=== PATIENT | female | born 1995 | race Caucasian/White ===

== ENCOUNTER → 2017-04-03 | Outpatient (CLI) | payer OTHER ==
--- NOTE | 2017-04-03 14:05 | Diagnostic Imaging Report ---
INDICATION: survey. TECHNIQUE: Multiple real-time grayscale images were obtained over the gravid uterus. COMPARISON: None FINDINGS: There is a live single intrauterine . heart rate is 146 beats per minute. The placenta is anterior. The placenta appeared to be extending to the lower uterine segment near the internal os however after voiding, there is more than 2 cm distance between the placenta and internal os indicating no placenta previa. The cervix is 5.4 cm in length and is closed. No ventriculomegaly. The stomach, the kidneys, three-vessel cord appear unremarkable. The urinary bladder, the four-chamber view and the spine are not well evaluated due to position and lack of distention of the bladder. The cord insertion is inseparable from adjacent leg with no definite abnormality. The growth parameters are: Biparietal diameter: 18 weeks and 3 days, at 20 percentile Head circumference: 18 weeks and one day, at 5 percentile Abdominal circumference: 18 weeks and 5 days, at 30 percentile Femur length: 18 weeks and 4 days, at 20 percentile These average at: 18 weeks and 4 days. This compares to 19 weeks and one day gestational age based on provided ROSALVA of 08/27/2017. IMPRESSION: Incomplete survey. Reevaluation within three weeks for the spine, urinary bladder, and four-chamber view is recommended. Better assessment of the cord insertion could also be attempted. Dictated by: Dictated on workstation # [id number]
== END ==
LOC: RAD 09:52
PROVIDERS: ATTEND Obstetrics & Gynecology
DX: Z36 Encounter for antenatal screening of mother (principal); Z3A.18 18 weeks gestation of pregnancy
CPT/HCPCS: 76805; 76817

== ENCOUNTER → 2017-07-04 | Outpatient (CLI) | payer MEDICAID, OTHER ==
[~2017-07-04] MED LIST: DOCU100C37 PO; FERR-74 PO; HYDR-3874 PO; IBUP-1773 PO
--- NOTE | 2017-07-04 16:13 | Diagnostic Imaging Report ---
INDICATION: Further evaluate anatomy not seen on prior examination. TECHNIQUE: Multiple real-time grayscale images were obtained over the gravid uterus. COMPARISON: 04/03/2017. FINDINGS: A limited anatomy survey was performed to assess the anatomy that was not seen on prior examination. A single live gestation is again seen in cephalic presentation with a heart rate of 143 beats per minute. Allowing for advanced gestational age, the spine, urinary bladder, and four-chamber heart are normal. The umbilical cord insertion on the abdominal wall is not well visualized on this examination. The BRYCE is normal at 10.5 cm with the largest pocket measuring 3.8 cm. Due to limited nature of this examination, the biometric data such as average ultrasound age was not performed. IMPRESSION: The four-chamber heart, spine, and urinary bladder are all normal. Again the umbilical cord insertion on the abdominal wall of the fetus was poorly evaluated due to advanced gestational age. Dictated by: Dictated on workstation # [id number]
== END ==
LOC: RAD 09:57
PROVIDERS: ATTEND Obstetrics & Gynecology
DX: Z36 Encounter for antenatal screening of mother (principal); Z3A.00 Weeks of gestation of pregnancy not specified
CPT/HCPCS: 76816

== ENCOUNTER 2019-02-26 16:30 | Emergency (ER) | payer MEDICAID, OTHER ==
[~2019-02-26 16:30] MED LIST changes: -FERR-74 PO; +FERR325T18 PO; +HYDR-3870 PO; -HYDR-3874 PO
--- OUTSIDE RECORDS SUMMARY | 2019-02-26 16:35 | XMS REPORT | Continuity of Care Document ---
Author Organization Unknown Address Unknown Allergies There is no data. Medications There is no data. Problems There is no data. Procedures There is no data. Results There is no data. Encounters ACCT No. Visit Date/Time Discharge Status Pt. Type Provider Facility Loc./Unit Complaint [id number] 02/11/2019 09:30:00 02/11/2019 23:59:59 CLS Outpatient DAVID LALA DO [facility]
[2019-02-26 16:50] VITALS: BP 0/0
== END 2019-02-26 16:50 | disposition left against medical advice (07) ==
LOC: EDUNIT# 16:30 → ER FS 16:32
DX: T78.40XA Allergy, unspecified, initial encounter (principal)
CPT/HCPCS: 99281

== ENCOUNTER 2022-02-11 10:30 | Emergency (ER) | payer OTHER ==
[~2022-02-11] VITALS: Ht 157.5 cm; Wt 49.9 kg
[2022-02-11 10:55] LABS: CLARITY,URINE CLEAR; COLOR,URINE YELLOW; GLUCOSE, URINE (UA) NEGATIVE (NEGATIVE); KETONES,URINE 3+ (NEGATIVE); LEUKOCYTE ESTERASE ,URINE 1+ (NEGATIVE); NITRITE,URINE NEGATIVE (NEGATIVE); PROTEIN,URINE 2+ (NEGATIVE)
[2022-02-11 10:57] LABS: BACTERIA,URINE MODERATE /HPF; BILIRUBIN,URINE 1+ (NEGATIVE)
[2022-02-11 10:58] LABS: BASOPHILS # (AUTO) 0.1 10^3/uL (0.0-0.1); BASOPHILS % (AUTO) 0 % (0-10); EOSINOPHILS % (AUTO) 0 % (0-10); HEMATOCRIT 42 % (35-52); HEMOGLOBIN 15.1 g/dL (11.5-16.0); LYMPHOCYTES # (AUTO) 0.6 10^3/uL (1.0-4.0); LYMPHOCYTES % (AUTO) 2 % (12-44); MEAN CORPUSCULAR HEMOGLOBIN 30 pg (25-34); MEAN CORPUSCULAR HGB CONC 36 g/dL (32-36); MEAN CORPUSCULAR VOLUME 83 fL (80-99); MEAN PLATELET VOLUME 11.3 fL (9.0-12.2); MONOCYTES # (AUTO) 1.1 10^3/uL (0.0-1.0); MONOCYTES % (AUTO) 3 % (0-12); NEUTROPHILS # (AUTO) 29.1 10^3/uL (1.8-7.8); NEUTROPHILS % (AUTO) 94 % (42-75); PLATELET COUNT 250 10^3/uL (130-400)
[2022-02-11 11:00] LABS: WHITE BLOOD COUNT 30.9 10^3/uL (4.3-11.0)
[2022-02-11] MEDS ORDERED: ONDANSETRON 4 MG/2 ML (SDV) Z0FRAN IVP STA (11:03)
[2022-02-11] MEDS ORDERED: NS IV 1000 ML 1,000 ML IV STA ×2 (11:03→12:04)
[2022-02-11 11:13] LABS: ALANINE AMINOTRANSFERASE 11 U/L (0-55); ALBUMIN 5.4 GM/DL (3.2-4.5); ALKALINE PHOSPHATASE 58 U/L (40-136); BILIRUBIN,TOTAL 0.6 MG/DL (0.1-1.0); BUN/CREATININE RATIO 28; CALCIUM 10.5 MG/DL (8.5-10.1); CARBON DIOXIDE 23 MMOL/L (21-32); CHLORIDE 104 MMOL/L (98-107); CREATININE SERUM 0.64 MG/DL (0.60-1.30); GFR ESTIMATED 125; GLUCOSE 145 MG/DL (70-105); LIPASE 30 U/L (8-78); SODIUM 140 MMOL/L (135-145); TOTAL PROTEIN 8.5 GM/DL (6.4-8.2)
[2022-02-11] MEDS ORDERED: KETOROLAC 30 MG/ML VIAL IVP STA (11:34)
[2022-02-11] MEDS ORDERED: fentaNYL INJ 100 MCG/2 ML AMP IVP STA (11:34)
[2022-02-11] MEDS ORDERED: PANTOPRAZOLE 40 MG (PROTONIX) VIAL IV STA (11:34)
[2022-02-11] MEDS ORDERED: cefTRIAXone 1 GM PRE-MIX 50 ML IV STA (11:35)
[2022-02-11 11:43] LABS: LYMPHOCYTES % (MANUAL) 1 %; MONOCYTES % (MANUAL) 1 %; NEUTROPHILS % (MANUAL) 98 %
[2022-02-11] MEDS ORDERED: HOLD METFORMIN - RECEIVED CONTRAST 20 ML VIAL IV SCH (11:45)
[2022-02-11] MEDS ORDERED: IOHEXOL 350 MG/ML 100 ML (OMNIPAQUE 350) VIAL IV ONE (11:45)
[2022-02-11] MEDS ORDERED: NS 100 ML (IVPB) BAG IV ONE (11:45)
[2022-02-11] MEDS ORDERED: CATHETER FLUSH 10 ML SYR IV PRN (11:45)
--- NOTE | 2022-02-11 12:19 | Diagnostic Imaging Report ---
PROCEDURE: CT abdomen and pelvis with contrast, rule out appendicitis. TECHNIQUE: Multiple contiguous axial images were obtained through the abdomen and pelvis after the administration of intravenous contrast. All CT scans use one or more of the following dose optimizing techniques: automated exposure control, MA and/or KvP adjustment based on patient size and exam type or iterative reconstruction. INDICATION: Nausea, vomiting and diarrhea with elevated white blood cell count and left lower quadrant abdominal pain. No prior studies are available for comparison. The lung bases are clear. The liver and gallbladder are unremarkable. There is no biliary ductal dilatation. The pancreas and spleen are unremarkable. No adrenal mass is detected. Kidneys are unremarkable. No hydronephrosis is seen. Aorta is nonaneurysmal. Bowel loops are of normal caliber. There are some fluid-filled small bowel loops in the lower abdomen and pelvis without evidence of transition. This could be owing to nonspecific enteritis. No inflammatory changes are seen. The appendix is not definitely visualized however no inflammatory changes in the right lower quadrant are detected. There is no free fluid or fluid collection detected. Uterus contains an IUD. The bladder is unremarkable. IMPRESSION: Nonspecific fluid-filled small bowel loops in the lower abdomen and pelvis without evidence of a transition zone. This could be owing to nonspecific enteritis. No definite inflammatory changes are seen. Dictated by: Dictated on workstation # [id number]
--- NOTE | 2022-02-11 12:27 | ED GI ---
General Chief Complaint: Abdominal/GI Problems Stated Complaint: VOMITING AND DIARRHEA Nursing Triage Note: PT AMBULATE TO ROOM FSOF WITH C/O N/V/D SINCE 023 TODAY. Source of Information: Patient History of Present Illness Date Seen by Provider: Feb 11, 2022 Time Seen by Provider: 10:37 Initial Comments 26-year-old female presenting with complaints of nausea, vomiting, diarrhea and diffuse abdominal pain since 230 this morning. She denies eating anything di fferent or abnormal. She has not had a fever or chills. She does have decreased urine output and has not been able to tolerate oral today. She denies having any abdominal surgeries in the past. She has recently started on a medication for possible lupus. She denies any abdominal trauma. She has not seen any blood in her urine or stool or vomit. Timing/Duration: Other (Since 2:30 AM) Severity/Quality: Severe Location: Generalized Abdomen Activities at Onset: Sleeping Modifying Factors: Worsens With Eating Associated Symptoms: No Back Pain, No Chest Pain, No Diaphoresis, No Fever/Chills, No Fatigue, No Headache, No Heartburn; Nausea/Vomiting; No Rash, No Shortness of Air, No Swelling/Mass in Abdomen, No Syncope, No Weakness Allergies and Home Medications Allergies Coded Allergies: Sulfa (Sulfonamide Antibiotics) (Verified Allergy, Severe, ANAPHYLAXIS, 08/18/17) Causes throat to swell. Patient Home Medication List Home Medication List Reviewed: Yes Cephalexin (Cephalexin) 500 Mg Capsule, 500 MG PO TID Prescribed by: SHERRY HURTADO on 02/11/22 1313 Docusate Sodium (Docusate Sodium) 100 Mg Capsule, 100 MG PO BID Prescribed by: TAMMIE MONTES on 08/20/17727 Ferrous Sulfate (Ferrous Sulfate) 325 Mg Tablet, 325 MG PO DAILY Prescribed by: TAMMIE MONTES on 08/20/17727 Hydrocodone/Acetaminophen (Lorcet 5-325 mg Tablet) 1 Each Tablet, 1-2 EACH PO Q4H PRN for PAIN Prescribed by: TAMMIE MONTES on 08/20/17727 Ibuprofen (Ibuprofen) 600 Mg Tablet, 600 MG PO Q6H Prescribed by: TAMMIE MONTES on 08/20/17727 Ondansetron (Ondansetron Odt) 4 Mg Tab.rapdis, 4 MG PO Q6H PRN for NAUSEA/VOMITI NG Prescribed by: SHERRY HURTADO on 02/11/22 1313 Review of Systems Review of Systems Constitutional: No chills, No fever EENTM: No Symptoms Reported Respiratory: No Symptoms Reported Cardiovascular: No Symptoms Reported Gastrointestinal: See HPI Genitourinary: No Symptoms Reported Musculoskeletal: no symptoms reported Skin: no symptoms reported Psychiatric/Neurological: No Symptoms Reported Endocrine: No Symptoms Reported Past Mqtnqah-Kqgkho-Hmpjrz Hx Patient Social History Tobacco Use?: No Smoking Status: Never a Smoker Smokeless Tobacco Frequency: Never a User Use of E-Cig and/or Vaping dev: No Use of E-Cig and/or Vaping Oziel: Never a User Substance use?: No Alcohol Use?: No Pt feels they are or have been: No Seasonal Allergies Seasonal Allergies: Yes Past Medical History Surgeries: No Respiratory: No Cardiac: No Neurological: Yes Female Reproductive Disorders: Denies Sexually Transmitted Disease: No HIV/AIDS: No Genitourinary: No Gastrointestinal: No Musculoskeletal: No Endocrine: No HEENT: No Loss of Vision: Denies Hearing Impairment: Denies Cancer: No Psychosocial: No Integumentary: No Blood Disorders: No Adverse Reaction/Blood Tranf: No Family Medical History Alcoholism Grandparents (Maternal Grandmother) Asthma 19 MOTHER Brain cancer Grandparents (Maternal Grandmother) Hypertension 19 MOTHER Neoplasm Grandparents (Maternal Grandma) Seizure disorder 19 MOTHER Physical Exam Vital Signs Vital Signs - First Documented 02/11/22 02/11/22 10:41 13:22 Temp 36.1 Pulse 113 Resp 19 B/P (MAP) 126/79 (95) Pulse Ox 100 O2 Delivery Room Air Capillary Refill : Less Than 3 Seconds Height/Weight/BMI Height: 5'1.00" Weight: 153lbs. 6.0oz. [id number]; 20.00 BMI Method: General Appearance: WD/WN, mild distress HEENT: PERRL/EOMI, other (Dry mucous membranes) Neck: non-tender, full range of motion, supple, normal inspection Respiratory: chest non-tender, lungs clear, normal breath sounds, no respirato ry distress, no accessory muscle use Cardiovascular: normal peripheral pulses, regular rate, rhythm Gastrointestinal: soft, no pulsatile mass, abnormal bowel sounds (Hypoactive bowel sounds); No distended; guarding; No rebound; tenderness (Diffuse tenderness abdominal wall) Rectal: deferred Extremities: normal range of motion, non-tender, normal capillary refill Back: no CVA tenderness Neurologic/Psychiatric: speech therapist technician II-XII nml as tested, alert, oriented x 3 Skin: normal color, warm/dry Progress/Results/Core Measures Results/Orders Lab Results Laboratory Tests Test 02/11/22 10:41 02/11/22 10:50 Range/Units Urine Color YELLOW Urine Clarity CLEAR Urine pH 6.0 5-9 Urine Specific Bosler >=1.030 1.016-1.022 Urine Protein 2+ H NEGATIVE Urine Glucose (UA) NEGATIVE NEGATIVE Urine Ketones 3+ H NEGATIVE Urine Nitrite NEGATIVE NEGATIVE Urine Bilirubin 1+ H NEGATIVE Urine Urobilinogen 0.2 < = 1.0 MG/DL Urine Leukocyte Esterase 1+ H NEGATIVE Urine RBC (Auto) 3+ H NEGATIVE Urine RBC 10-25 H /HPF Urine WBC NONE /HPF Urine Squamous Epithelial Cells 10-25 H /HPF Urine Crystals NONE /LPF Urine Bacteria MODERATE H /HPF Urine Casts NONE /LPF Urine Mucus LARGE H /LPF Urine Culture Indicated YES White Blood Count 30.9 *H 4.3-11.0 10^3/uL Red Blood Count 5.10 3.80-5.11 10^6/uL Hemoglobin 15.1 11.5-16.0 g/dL Hematocrit 42 35-52 % Mean Corpuscular Volume 83 80-99 fL Mean Corpuscular Hemoglobin 30 25-34 pg Mean Corpuscular Hemoglobin Concent 36 32-36 g/dL Red Cell Distribution Width 12.2 10.0-14.5 % Platelet Count 250 130-400 10^3/uL Mean Platelet Volume 11.3 9.0-12.2 fL Immature Granulocyte % (Auto) 1 % Neutrophils (%) (Auto) 94 H 42-75 % Lymphocytes (%) (Auto) 2 L 12-44 % Monocytes (%) (Auto) 3 0-12 % Eosinophils (%) (Auto) 0 0-10 % Basophils (%) (Auto) 0 0-10 % Neutrophils # (Auto) 29.1 H 1.8-7.8 10^3/uL Lymphocytes # (Auto) 0.6 L 1.0-4.0 10^3/uL Monocytes # (Auto) 1.1 H 0.0-1.0 10^3/uL Eosinophils # (Auto) 0.0 0.0-0.3 10^3/uL Basophils # (Auto) 0.1 0.0-0.1 10^3/uL Immature Granulocyte # (Auto) 0.2 H 0.0-0.1 10^3/uL Neutrophils % (Manual) 98 % Lymphocytes % (Manual) 1 % Monocytes % (Manual) 1 % Sodium Level 140 135-145 MMOL/L Potassium Level 4.0 3.6-5.0 MMOL/L Chloride Level 104 98-107 MMOL/L Carbon Dioxide Level 23 21-32 MMOL/L Anion Gap 13 5-14 MMOL/L Blood Urea Nitrogen 18 7-18 MG/DL Creatinine 0.64 0.60-1.30 MG/DL Estimat Glomerular Filtration Rate 125 BUN/Creatinine Ratio 28 Glucose Level 145 H 70-105 MG/DL Calcium Level 10.5 H 8.5-10.1 MG/DL Corrected Calcium 8.5-10.1 MG/DL Total Bilirubin 0.6 0.1-1.0 MG/DL Aspartate Amino Transf (AST/SGOT) 19 5-34 U/L Alanine Aminotransferase (ALT/SGPT) 11 0-55 U/L Alkaline Phosphatase 58 40-136 U/L Total Protein 8.5 H 6.4-8.2 GM/DL Albumin 5.4 H 3.2-4.5 GM/DL Lipase 30 8-78 U/L My Orders Orders - SHERRY HURTADO MD Ua Culture If Indicated (02/11/22 10:41) Urine Bedside (02/11/22 10:41) Comprehensive Metabolic Panel (02/11/22 10:41) Lipase (02/11/22 10:41) Ed Iv/Invasive Line Start (02/11/22 10:41) Cbc With Automated Diff (02/11/22 10:41) Urine Culture (02/11/22 10:41) Manual Differential (02/11/22 10:50) Ondansetron Injection (Zofran Injectio (02/11/22 11:03) Ns Iv 1000 Ml (Sodium Chloride 0.9%) (02/11/22 11:03) Ketorolac Injection (Toradol Injection) (02/11/22 11:34) Pantoprazole Injection (Protonix Injecti (02/11/22 11:34) Fentanyl Inj (Sublimaze Injection) (02/11/22 11:34) Ct Abd/Pelv W (Appendicitis) (02/11/22 11:35) Ceftriaxone 1 Gm Pre-Mix (Rocephin 1 Gm (02/11/22 11:35) Iohexol Injection (Omnipaque 350 Mg/Ml 1 (02/11/22 11:45) Received Contrast (Hold Metformin- Contr (02/11/22 11:45) Sodium Chloride Flush (Catheter Flush Sy (02/11/22 11:45) Ns (Ivpb) (Sodium Chloride 0.9% Ivpb Bag (02/11/22 11:45) Ns Iv 1000 Ml (Sodium Chloride 0.9%) (02/11/22 12:04) Medications Given in ED Current Medications Medications Dose Ordered Sig/Cassidy Route Start Time Stop Time Status Last Admin Dose Admin Iohexol 75 ml ONCE ONCE IV 02/11/22 11:45 02/11/22 11:46 DC 02/11/22 12:07 75 ML Sodium Chloride 10 ml NEEDED PRN IV 02/11/22 11:45 02/11/22 13:22 DC 02/11/22 12:07 10 ML Sodium Chloride 100 ml ONCE ONCE IV 02/11/22 11:45 02/11/22 11:46 DC 02/11/22 12:07 80 ML Vital Signs/I&O 02/11/22 02/11/22 10:41 13:22 Temp 36.1 Pulse 113 91 Resp 19 18 B/P (MAP) 126/79 (95) 124/73 Pulse Ox 100 O2 Delivery Room Air Room Air Blood Pressure Mean: 95 Progress Progress Note #1: Progress Note Obtain labs and urine. Give Zofran for nausea and IV fluids for hydration. Progress Note #2: Progress Note Urine was concentrated with bacteria and some white blood cells concerning for infection. She also had some ketones. Her blood work showed an elevated white blood cell count of 30,000 with a left shift. Her chemistry panel did not show acute significant abnormality. Discussed findings with patient and will obtain a CT scan since she was having abdominal pain and had such a high white blood cell count. This may just be a stomach virus or something she ate in addition to UTI but since her white blood cell count is 30,[address] scan with IV contrast to evaluate for possible acute appendicitis versus cholecystitis versus enteritis versus pyelonephritis versus colitis versus diverticulitis. Progress Note #3: Progress Note Patient reports feeling better after treatment. She is able to tolerate oral ice chips and fluid. CT scan did not demonstrate any acute signs of appendicitis, cholecystitis, colitis, diverticulitis. She did have some signs for enteritis. Will treat symptomatically and have patient try to follow-up if not improving. Follow a liquid diet for the next 24 hours and then advance as tolerated. Counseled on follow-up and return precautions. Given the first dose of antibiotics with 1 g of Rocephin here and discharged on Keflex. Also discharged on Zofran ODT tablets. Diagnostic Imaging Diagonstic Imaging: CT Plain Films/CT/US/NM/MRI: abdomen, pelvis Comments [facility]. [place], [place] NAME: MONA BARAHONA [facility] REC#: [id number] PT STATUS: REG ER : 1995 PHYSICIAN: SHERRY HURTADO MD ADMIT DATE: 02/11/22/ER FS Draft Date of Exam:02/11/22 CT ABD/PELV W (APPENDICITIS) PROCEDURE: CT abdomen and pelvis with contrast, rule out appendicitis. TECHNIQUE: Multiple contiguous axial images were obtained through the abdomen and pelvis after the administration of intravenous contrast. All CT scans use one or more of the following dose optimizing techniques: automated exposure control, MA and/or KvP adjustment based on patient size and exam type or iterative reconstruction. INDICATION: Nausea, vomiting and diarrhea with elevated white blood cell count and left lower quadrant abdominal pain. No prior studies are available for comparison. The lung bases are clear. The liver and gallbladder are unremarkable. There is no biliary ductal dilatation. The pancreas and spleen are unremarkable. No adrenal mass is detected. Kidneys are unremarkable. No hydronephrosis is seen. Aorta is nonaneurysmal. Bowel loops are of normal caliber. There are some fluid-filled small bowel loops in the lower abdomen and pelvis without evidence of transition. This could be owing to nonspecific enteritis. No inflammatory changes are seen. The appendix is not definitely visualized however no inflammatory changes in the right lower quadrant are detected. There is no free fluid or fluid collection detected. Uterus contains an IUD. The bladder is unremarkable. IMPRESSION: Nonspecific fluid-filled small bowel loops in the lower abdomen and pelvis without evidence of a transition zone. This could be owing to nonspecific enteritis. No definite inflammatory changes are seen. Dictated on workstation # [id number] Dict: 02/11/22 1207 Trans: 02/11/22 1217 [facility] [id number] Interpreted by: ERIS TURNER MD Electronically signed by: Reviewed: Reviewed by Me Departure Impression Primary Impression: Cystitis without hematuria Additional Impressions: Nausea vomiting and diarrhea Diffuse abdominal pain Dehydration Disposition: HOME, SELF-CARE Condition: Improved Departure-Patient Inst. Decision time for Depature: 13:07 Referrals: SELFPINA MD (PCP/Family) Primary Care Physician Patient Instructions: Abdominal Pain, Adult ED, Diarrhea, Adult ED, Full Liquid Diet, Nausea and Vomiting, Adult ED, Urinary Tract Infection, Adult ED Add. Discharge Instructions: Follow a liquid diet for at least 24 hours to help your stomach settle. After that you could try advancing to a bland diet such as a BRAT diet with Bananas, Rice, Applesauce, [employer]/Crackers. If you are tolerating that then you could advance to a regular diet. Use the nausea medicine to help keep your stomach settled Consider Liquid IV or Electrolyte drinks to help with hydration. Return if not improving or unable to keep anything down despite the nausea medicine Take the full course of antibiotics for urine infection. Consider taking a ProBiotic to help with the good bacteria in your gut to regulate the diarrhea and replace the bacteria in your gut that help with digestion that will be killed off with the antibiotic for the urine infection. All discharge instructions reviewed with patient and/or family. Voiced understanding. Scripts Cephalexin (Cephalexin) 500 Mg Capsule 500 MG PO TID for UTI for 7 Days, #21 CAP 0 Refills Prov: SHERRY HURTADO MD 02/11/22 Ondansetron (Ondansetron Odt) 4 Mg Tab.rapdis 4 MG PO Q6H PRN for NAUSEA/VOMITING for 5 Days, #20 TAB 0 Refills Prov: SHERRY HURTADO MD 02/11/22 SHERRY HURTADO MD Feb 11, 2022 12:27
[2022-02-11] MEDS ORDERED: CEPH500C PO (13:13)
[2022-02-11] MEDS ORDERED: ONDA4TAB11 PO (13:13)
[2022-02-11 13:22] VITALS: BP 124/73
== END 2022-02-11 13:22 | disposition home or self-care (01) ==
LOC: EDUNIT# 10:30 → ER FS 10:33
DX: N30.00 Acute cystitis without hematuria (principal); E86.0 Dehydration; R11.2 Nausea with vomiting, unspecified; R19.7 Diarrhea, unspecified
CPT/HCPCS: 36415; 74177; 80053; 81000; 83690; 84703; 85007; 85027; 87088; Q9967